=== PATIENT | male | born 1960 | race Caucasian/White ===

== ENCOUNTER 2017-07-11 06:57 | Day surgery (SDC) | payer BC ==
[~2017-07-11] VITALS: Ht 167.6 cm; Wt 112.2 kg
[2017-07-11 07:46] VITALS: Ht 167.6 cm; Wt 112.2 kg
[2017-07-11] MEDS ORDERED: KRILL OIL (07:50)
[2017-07-11] MEDS ORDERED: OMEGA-3 (07:50)
[2017-07-11] MEDS ORDERED: ASPIRIN (07:50)
[2017-07-11] MEDS ORDERED: METFORMIN (07:50)
[2017-07-11] MEDS ORDERED: JANUVIA (07:50)
[2017-07-11] MEDS ORDERED: PROPOFOL 40 ML ONE (07:58)
[2017-07-11] MEDS ORDERED: LIDOCAINE 100 MG SYRINGE ONE (07:58)
[2017-07-11] MEDS ORDERED: FENTAnyl 50 MCG/ML VIAL ONE (07:58)
[2017-07-11 08:13] VITALS: BP 127/85; PULSE 67; RESP 16
--- NOTE | 2017-07-11 08:45 | OPPN ---
Date/Time of Note Date/Time of Note DATE: 07/11/17 TIME: 08:44 Proc Note GI Procedure Date 07/11/17 Pre-procedure Diagnosis Screening colonoscopy Post-procedure Diagnosis Lipomatous polyp at 20 cm Procedure Performed: Colonoscopy Surgeon see signature line Actuarial Intern none Anesthesia Type: MAC Tourniquet Time none EBL none Transfusion required none Biopsy 1: None Grafts/Implants none Tubes/Drains none Complication(s) none Pt Condition post procedure: stable Disposition: PACU Indications: screening/surveillance Operative\Procedure Findings Colonoscopy Procedure Description See dictated report GIGI HENDRIX MD Jul 11, 2017 08:45
--- NOTE | 2017-07-12 04:39 | GILP ---
DATE OF PROCEDURE: PROCEDURE: Colonoscopy. INDICATION: A 57-year-old male undergoing this procedure for colon cancer screening. He had a colo elham resection either for diverticulitis or tumor. I do not have proper information on that. INFORMED CONSENT: The risk of the procedure, related and unrelated complications, anesthetic risks, alternatives discussed and informed consent was obtained. DESCRIPTION OF PROCEDURE: Patient was brought to the GI lab, sedated by Dr. Lee. After optim al sedation, digital examination done. Prostate was not felt. Sphincter tone was normal. Scope wa s passed with much ease into rectum, advanced through sigmoid, descending, transverse colon all the way into cecum. Appendiceal orifice identified. There was slight color. There was a 5% collection of the stool in the cecum. The rest of the colon appeared normal. It was thoroughly inspected whi le coming out. Anastomosis examined, which was at 20 cm. There was a 2 cm polyp and baby polyp abo ut 7 mm in diameter identified next to it. The cushion sign was positive, so definitely there was a lipomatous polyp. Scope was removed with good patient tolerance. IMPRESSION: 1. Two cm submucosal lesion near the anastomotic site, most probably lipoma. 2. Negative all the way into cecum. 3. Clarity and cleanliness was good. 4. Normal anastomosis. PLAN: Stay on high fiber diet. I would prefer to do EUS to confirm the submucosal lesion. Dictated By: GIGI BLANKENSHIP/KESHIA Conf#: [id number] DID#: [id number]
== END 2017-07-11 17:51 | disposition home or self-care (01) ==
LOC: GIL 06:57
PROVIDERS: ATTEND Internal Medicine Gastroenterology
DX: Z12.11 Encounter for screening for malignant neoplasm of colon (principal); K63.9 Disease of intestine, unspecified; E11.9 Type 2 diabetes mellitus without complications; Z88.5 Allergy status to narcotic agent
CPT/HCPCS: 45378; 82962; J2001; J3010; Z7610